=== PATIENT | male | born 1950 | race Caucasian/White ===

== ENCOUNTER 2018-03-26 15:46 | Observation (INO) ==
--- NOTE | 2018-03-26 16:20 | Emergency Department Note ---
ED Disposition Clinical Impression: COPD exacerbation Disposition: Still a Patient Condition on Discharge: Fair - Critical Care Critical Care Time: No Attestation: On 03/26/18, the high probability of a clinically significant, sudden or life threatening deterioration of the following system(s) required my full and direct attention, intervention and personal management. The time I documented below is in addition to time spent performing reported procedures but includes the following listed in this critical care notation. Medical Decision Making - Eliecer Inquiry Pt receiving controlled substance: No Vital Signs: 03/26/18 15:55 03/26/18 16:19 Temperature 98.8 F Temperature Source Temporal Artery Scan Pulse Rate 93 H Pulse Rate [Right Brachial] 97 H Respiratory Rate 32 H Blood Pressure [RIGHT] 121/63 Blood Pressure Mean [RIGHT] 82 Blood Pressure Source [RIGHT] Automatic Cuff Blood Pressure Position [RIGHT] Sitting 02 Sat by Pulse Oximetry 96 Oxygen Delivery Method Nasal Cannula Oxygen Flow Rate (LPM) 3 - Lab Data Lab Results 03/26/18 16:00: WBC 8.9, RBC 3.74 L, Hgb 12.4 L, Hct 35.1 L, MCV 93.7, MCH 33.0 H, MCHC 35.3, RDW 14.4, Plt Count 268, MPV 7.5, Neut % (Auto) 72.3, Lymph % (Auto) 16.4, [place] % (Auto) 6.6, Eos % (Auto) 4.3, Baso % (Auto) 0.3, Neut # (Auto) 6.4, Lymph # (Auto) 1.5, [place] # (Auto) 0.6, Eos # (Auto) 0.4, Baso # (Au to) 0.0 03/26/18 16:00: Sodium 140, Potassium 4.1, Chloride 102, Carbon Dioxide 32, Anion Gap 10.1, BUN 12, Creatinine 0.78, Estimated Creat Clear 42, Estimated GFR 100, Est GFR ( Amer) 120, Glucose 89, Calcium 9.5, Total Bilirubin 0.4, AST 24, ALT 23, Alkaline Phosphatase 120 H, Total Creatine Kinase 71, CK-MB (CK- 2) 2.3, CK-MB (CK-2) Rel Index 3.2, Troponin I < 0.02, Total Protein 8.0, Albumin 3.4, Globulin 4.6 H, Albumin/Globulin Ratio 0.7 L 10/09/18 16:00: Lactate 1.2 03/26/18 16:00: B-Natriuretic Peptide 20 Result diagrams: 03/26/18 16:00 03/26/18 16:00 Orders (Tests/Meds): ED MEDICATIONS Generic Name Dose Route Start Last Admin Trade Name Freq PRN Reason Stop Dose Admin Albuterol/Ipratropium 3 ml 03/26/18 20:00 Duoneb 3ml [facility] 04/25/18 19:59 QIDRT ARABELLA Methylprednisolone Sodium Succinate 80 mg 03/26/18 18:06 Solu-Medrol 125mg/2ml Vial IV 04/25/18 18:05 Q8H ARABELLA Discontinued Medications Generic Name Dose Route Start Last Admin Trade Name Freq PRN Reason Stop Dose Admin Albuterol/Ipratropium 3 ml 03/26/18 16:18 03/26/18 16:18 Duoneb 3ml [facility] 03/26/18 16:19 3 ml ONCE ONE Administration Methylprednisolone Sodium Succinate 125 mg 03/26/18 16:29 03/26/18 17:33 Solu-Medrol 125mg/2ml Vial IV 03/26/18 16:30 125 mg ONCE ONE Administration ORDERS Category Date Time Status CT chest wo con Stat Cat Scan 03/26/18 16:33 Taken Blood Culture Stat Micro 03/26/18 16:00 Received - Radiology Data #1 Image(s): Chest Image Reviewed: Yes I discussed the image results w/the radiologist COPD. Nodule at right costophrenic angle. Right midlung pleural-based density, appears old. - CT Data CT Scan: Chest Time Received: 17:[address] Reviewed: Yes: I have viewed the radiologist's interpretation Findings Narrative: CT scan interpreted by [facility] radiologist. Faxed report received and reviewed: Emphysema with evidence of old granulomatous disease. In comparison to 2016 there is new pleural parenchymal scarring or part solid mass versus pneumonia and/or subsegmental atelectasis peripherally along the major fissure at the base of the right upper lobe. - Physician Consults Physician Consulted: Blanca Time: 17:35 Reason -: Admission Comment/Response: Agrees to admit the patient to the hospital. We discussed the patient's clinical information, including history, exam, laboratory and radiology results and ED course. Per hospital procedure, I will write temporary bridge inpatient orders on the patient. Specific orders requested by the admi tting physician: Nebulizer treatments, IV steroids Medical Decision Narrative: 4:20 PM: Patient has refused arterial blood gas. 5:30 PM: Discussed disposition with patient and family. They do not feel he is well enough to go home. They report that the patient has been having episodes of pulse ox down into the 70s heart rate up to 130s at night, always complains of feeling cold. General Adult HPI - General Chief complaint: Shortness of Breath/Dyspnea Stated complaint: Low O2 Level Time Seen by Provider: 03/26/18 16:20 Mode of Arrival: Wheelchair Limitations: No Limitations Description of Symptoms (Recalled from ER Triage Doc. by RN): PT PRESENTS WITH SOA. SMOKER WHO HAS COPD AND WENT TO SEE HIS PCP , WHERE HE WAS ALSO HAVING DIFFICULTY AND THEY COULDN'T GET HIS O2 SATURATION ABOVE 65% - History of Present Illness HPI narrative: Poor historian. Sent from primary care provider's office by Calvin Lopez NP for Dr. Rios. Patient says he was there for an appointment that his girlfriend made for him. He is not sure why he had the appointment, whether it was a routine visit or because of some sort of recent illness. He had low pulse oximetry in the office - 65%. He has severe COPD, on oxygen 3 L nasal cannula at home. He is on nebulizer treatments and says he uses 15-20 a day, but they do not help. He says his chest always feels tight. He has a chronic burning sensation in his chest. He has a chronic cough. Recent decrease in sputum production, says he does not think that the nebulizer treatments help him cough up stuff is much as they used to. He felt feverish yesterday, did not take his temperature. Also had chills. Still smokes "from time to time". - Related Data Home Medications Medication Instructions Recorded Confirmed albuterol sulfate 2.5 mg/3 mL 1 dose INHALATION Q4H 30 Days #270 03/26/18 03/26/18 (0.083 %) solution for nebulization ml aspirin 81 mg tablet,delayed 81 mg PO DAILY 03/26/18 03/26/18 release atorvastatin 80 mg tablet 80 mg PO DAILY 30 Days #30 tab 03/26/18 03/26/18 omeprazole 40 mg capsule,delayed 1 tab PO DAILY 30 Days #30 cap 03/26/18 03/26/18 release Allergies Allergy/AdvReac Type Severity Reaction Status Date / Time ibuprofen [IBUPROFEN] Allergy Unknown I-RASH Verified 03/26/18 15:14 [facility] History I have reviewed the patient's past medical history: Yes Medical History: Reports:: Anxiety, Congestive Heart Failure, Chronic Obstructive Pulmonary Disease (COPD), Depression, Gastroesophageal Reflux Disease(GERD) Denies:: Cancer, Diabetes Mellitus Type 1, Diabetes Mellitus Type 2, Internal Pacemaker, Pulmonary Embolism, Renal Disease, Renal Insufficiency, Seizures Other Medical History: Reports: Arthritis Laterality Cases: Bilateral: Myringotomy (Ear Tubes) Other Surgeries: Yes: CABG, Cardiac Catheterization, Coronary Stent, Hernia Repair. No: Pacemaker Amputation: No Fractures: No - Social History Educational Level: Completed High School Smoking Status: Current every day smoker Tobacco Type: cigarettes # Packs/Day (cigarettes): 1 #Yrs smoked (if former smoker): 50 Alcohol Intake: former Alcohol Intake Frequency:: holidays/special occasions only - Psychiatric History Expresses thoughts of harming self/others: None Suicide Plan Description: No Plan Pschychiatric History:: Reports:: Anxiety, Depression Family Hx:: Cancer, Heart Attack, Stroke, Hypertension, Hyperlipidemia ROS Obtained: Yes All systems reviewed & no additional complaints - Constitutional Constitutional: Reports chills - Cardiovascular Cardiovascular: Reports chest pain (Chronic with cough) - Respiratory Respiratory: Yes cough, Yes dyspnea, No coughing up blood Physical Exam - General General appearance: alert, cachectic - Head Head exam: atraumatic, normocephalic, normal inspection - Eye Eye exam: Present: normal appearance, PERRL, EOMI - ENT ENT exam: Present: mucous membranes moist - Neck Neck exam: Present: normal inspection, full ROM, trachea midline. Absent: meningismus, lymphadenopathy - Chest Chest inspection: Present: normal inspection, symmetric chest wall rise. Absent: tenderness - Respiratory Respiratory exam: Present: other (Decreased breath sounds). Absent: respiratory distress - Cardiovascular Cardiovascular exam: Present: regular rate, normal rhythm. Absent: JVD - Abdominal Exam Abdominal exam: Present: soft, normal bowel sounds. Absent: distention, tenderness, guarding - Extremities Exam Extremities exam: Present: normal inspection, full ROM, normal capillary refill. Absent: calf tenderness - Neurological Exam Neurological exam: Present: alert, oriented X3 - Psychiatric Psychiatric exam: Present: normal affect, normal mood - Skin Skin exam: Present: warm, dry, intact, normal color
[2018-03-26 16:28] LABS: Basophils % 0.3 % (0.1-2.0); Eosinophils # 0.4 K/mm3 (0.0-0.4); Eosinophils % 4.3 % (0.1-12.0); Hematocrit 35.1 % (42.0-52.0); Hemoglobin 12.4 g/dL (14.1-18.0); Lymphocytes # 1.5 K/mm3 (0.7-4.5); Lymphocytes % 16.4 K/mm3 (10-50); Mean Corpuscular HGB Conc 35.3 g/dL (31.8-35.4); Mean Corpuscular Volume 93.7 fl (80-94); Mean Platelet Volume 7.5 fl (7.4-10.4); Monocytes # 0.6 K/mm3 (0.1-1.0); Monocytes % 6.6 % (1.7-9.3); Neutrophils # 6.4 K/mm3 (1.8-7.8); Neutrophils % 72.3 % (37.0-80.0); Platelet Count 268 K/mm3 (142-424); Red Blood Count 3.74 M/mm3 (4.60-6.20); Red Cell Distribution Width 14.4 % (11.5-17.5); White Blood Count 8.9 K/mm3 (4.8-10.8)
[2018-03-26 16:56] LABS: Alanine Aminotransferase 23 U/L (12-78); Albumin Level 3.4 gm/dL (3.4-5.0); Albumin/Globulin Ratio 0.7 (1.1-1.8); Alkaline Phosphatase 120 U/L (46-116); Anion Gap 10.1 mEq/L (5-15); Aspartate Amino Transferase 24 U/L (15-37); Bilirubin,Total 0.4 mg/dL (0.2-1.0); Blood Urea Nitrogen 12 mg/dL (7-18); Calcium 9.5 mg/dL (8.5-10.1); Carbon Dioxide 32 mmol/L (21.0-32.0); Chloride 102 mmol/L (98-107); Creatine Kinase 71 U/L (39-308); Globulin 4.6 gm/dl (1.3-3.2); Glucose 89 mg/dL (74-106); Potassium 4.1 mmoL/L (3.5-5.1); Sodium 140 mmol/L (136-145)
--- NOTE | 2018-03-26 20:23 | History & Physical Report ---
*Admission Date: 03/26/18 *Chief complaint: sob *History of present illness: this wm was seen in pcp office and refferred to ed as sat low and sig sob - [facility] History I have reviewed the patient's past medical history: Yes Medical History: Reports:: Anxiety, Congestive Heart Failure, Chronic Obstructive Pulmonary Disease (COPD), Depression, Gastroesophageal Reflux Disease(GERD), Hyperlipidemia, Hypertension Denies:: Cancer, Diabetes Mellitus Type 1, Diabetes Mellitus Type 2, Internal Pacemaker, MRSA, Pulmonary Embolism, Renal Disease, Renal Insufficiency, Seizures Other Medical History: Reports: Arthritis Laterality Cases: Bilateral: Myringotomy (Ear Tubes) Other Surgeries: Yes: CABG, Cardiac Catheterization, Coronary Stent, Hernia Repair. No: Pacemaker Amputation: No Fractures: No - *Social History Educational Level: Completed High School Smoking Status: Current every day smoker Tobacco Type: cigarettes # Packs/Day (cigarettes): 1 #Yrs smoked (if former smoker): 50 Alcohol Intake: former Alcohol Intake Frequency:: holidays/special occasions only Occupational Status: disabled Housing: house - Psychiatric History Expresses thoughts of harming self/others: None Suicide Plan Description: No Plan Pschychiatric History:: Reports:: Anxiety, Depression *Family Hx:: Cancer, Heart Attack, Stroke, Hypertension, Hyperlipidemia Review of Systems - Review of Systems Review of systems:: pertinent systems reviewed and negative unless documented below - Constitutional Reports fatigue, Denies fever(s) - Eyes Denies change in vision - ENT Reports dry mouth - *Cardiovascular Reports shortness of breath with activity, Denies chest pain at rest - *Respiratory Reports cough, Reports shortness of breath - *Gastrointestinal Denies abdominal pain - *Genitourinary Denies blood in urine - *Musculoskeletal Reports joint pain - Integumentary/Breasts Denies rash - *Neurologic Denies seizure-like activity - Psychiatric Reports anxiety Meds Home Medications Medication Instructions Recorded Confirmed Type albuterol sulfate 2.5 mg/3 mL 3 ml INHALATION Q4H 30 Days #270 ml 03/26/18 03/27/18 History (0.083 %) solution for nebulization atorvastatin 80 mg tablet 80 mg PO DAILY 30 Days #30 tab 03/26/18 03/26/18 History omeprazole 40 mg capsule,delayed 40 mg PO DAILY 30 Days #30 cap 03/26/18 03/27/18 History release Aspirin [Aspirin 325mg Tab] 325 mg PO DAILY 03/27/18 03/27/18 History Allergies Allergy/AdvReac Type Severity Reaction Status Date / Time ibuprofen [IBUPROFEN] Allergy Unknown I-RASH Verified 03/26/18 15:14 Exam Vital signs and Labs for Last 24 Hours: Temp Pulse Resp BP Pulse Ox 98.1 F 98 H 20 104/67 L 98 03/26/18 19:39 03/26/18 19:39 03/26/18 19:39 03/26/18 19:39 03/26/18 19:39 Laboratory Results - last 24 hr 03/26/18 16:00: WBC 8.9, RBC 3.74 L, Hgb 12.4 L, Hct 35.1 L, MCV 93.7, MCH 33.0 H, MCHC 35.3, RDW 14.4, Plt Count 268, MPV 7.5, Neut % (Auto) 72.3, Lymph % (Auto) 16.4, [place] % (Auto) 6.6, Eos % (Auto) 4.3, Baso % (Auto) 0.3, Neut # (Auto) 6.4, Lymph # (Auto) 1.5, [place] # (Auto) 0.6, Eos # (Auto) 0.4, Baso # (Auto) 0.0 03/26/18 16:00: Sodium 140, Potassium 4.1, Chloride 102, Carbon Dioxide 32, Anion Gap 10.1, BUN 12, Creatinine 0.78, Estimated Creat Clear 42, Estimated GFR 100, Est GFR ( Amer) 120, Glucose 89, Calcium 9.5, Total Bilirubin 0.4, AST 24, ALT 23, Alkaline Phosphatase 120 H, Total Creatine Kinase 71, CK-MB (CK- 2) 2.3, CK-MB (CK-2) Rel Index 3.2, Troponin I < 0.02, Total Protein 8.0, Albumin 3.4, Globulin 4.6 H, Albumin/Globulin Ratio 0.7 L 03/26/18 16:00: Lactate 1.2 03/26/18 16:00: B-Natriuretic Peptide 20 I & O for Last 24 hours: Intake & Output 03/24/18 03/25/18 03/26/18 03/27/18 11:59 11:59 11:59 11:59 Weight 95 lb - Constitutional no acute distress, cachectic - *Routine HEENT Exam Head: Present: normocephalic Eye: Present: EOMI, PERRL ENT: Present: mucous membranes dry - *Routine Neck Exam Absent: JVD - *Routine Respiratory Exam Present: prolonged expiratory phase, distant breath sounds - *Routine Cardiovascular Exam Present: RRR, murmur, S4 - *Routine Abdominal Exam Present: soft - *Routine Extremities Exam Absent: calf tenderness - *Routine Skin Exam Present: intact - *Routine Neurological Exam Present: alert, CN II-XII intact - Routine Psychiatric Exam Present: anxious Assessment and Plan (1) COPD exacerbation Current visit: Yes Status: Acute Category: Medical Code(s): J44.1 - Chronic obstructive pulmonary disease with (acute) exacerbation (2) Low body mass index (BMI) Current visit: Yes Status: Acute Category: Medical
--- NOTE | 2018-03-27 08:29 | Pharmacy Consult Notes ---
[facility] VTE Monitoring - Patient Demographics Admission date: 03/26/18 Report Date: 03/27/18 Time: 08:29 Allergies/Adverse Reactions: Patient Allergies ibuprofen [IBUPROFEN] Allergy (Unknown, Verified 03/26/18 15:14) I-RASH Height: 1.6 m Weight: 43.091 kg Patient Problems: Current Active Problems COPD exacerbation (Acute) - VTE Risk Labs: VTE Related Lab Results Hgb 12.4 g/dL (14.1-18.0) L 03/26/18 16:00 Hct 35.1 % (42.0-52.0) L 03/26/18 16:00 Plt Count 268 K/mm3 (142-424) 03/26/18 16:00 BUN 12 mg/dL (7-18) 03/26/18 16:00 Creatinine 0.78 mg/dL (0.70-1.30) 03/26/18 16:00 Estimated Creat Clear 42 mL/min (0-300) 03/26/18 16:00 VTE Score: 3 VTE Risk Level: Very Low Risk - Prophylaxis VTE Prophylaxis Ordered?: Yes Types of VTE Prophylaxis: TEDS Knee High Location of Applied Device: Bilateral Lower Extremeties - VTE Diagnosis Confirmed Treatment or plan recommended: Continue Current Treatment
--- NOTE | 2018-03-28 10:24 | Discharge Summary ---
General - General Admission date:: 03/26/18 Discharge date: 03/28/18 HPI HPI: this wm was seen in pcp office and sent to ed as sat low and sig sob -pt was admitted -nt from primary care provider's office by Calvin Lopez NP for Dr. Rios. Patient says he was there for an appointment that his girlfriend made for him. He is not sure why he had the appointment, whether it was a routine visit or because of some sort of recent illness. He had low pulse oximetry in the office - 65%. He has severe COPD, on oxygen 3 L nasal cannula at home. He is on nebulizer treatments and says he uses 15-20 a day, but they do not help. He says his chest always feels tight. He has a chronic burning sensation in his chest. He has a chronic cough. Recent decrease in sputum production, says he does not think that the nebulizer treatments help him cough up stuff is much as they used to. He felt feverish yesterday, did not take his temperature. Also had chills- Hospital Course Hospital Course: pt did well with iv steroids and had abx with pul treatment with adding breo - pt was at baseline act and has home o2 - cxr showed copd and ct was abn-NGS: Small bowel gas is present in the sternoclavicular joints nonspecific. There has been a prior median sternotomy with CABG. Multiple calcified nodes are present within the mediastinum and haven. There are coronary artery calcifications. Normal heart size. No evidence of pericardial effusion. There is dilatation of the trachea radiating up to 2.4 cm transverse and 2 cm AP consistent with tracheobronchomegaly Severe centrilobular emphysema with scattered areas of parenchymal fibrosis. Parenchymal opacification is present involving the posterior aspect of the right upper lobe along the major fissure partly solid measuring 1.3 x 1 cm with some surrounding groundglass density. Calcified nodule is present along the major fissure inferiorly on the right. There is some pleural thickening in the right CP angle anteriorly which may account for the radiographic abnormality. Calcified granulomas present in the lingula. Noncalcified nodule present in the left lower lobe laterally at 4 mm. There is mild diffuse bronchial thickening. No central obstructing lesions are evident. No acute bony anomalies evident. There is an old fracture of the left fifth rib posterior laterally. No acute finding in the upper abdomen images. Nonobstructing 2 mm stone is present in the upper pole the left kidney. IMPRESSION: 1. New opacity in the posterior aspect of the right upper lobe with a solid component at 1.3 x 1 cm with some peripheral groundglass opacity. This could represent pleural parenchymal scarring versus underlying pneumonia with dense opacification for neoplasm. 3 month follow-up without and with contrast suggested. Alternatively, PET CT may be of further value clinically warranted. 2. Centrilobular emphysema with scattered areas of pulmonary fibrosis with tracheobronchomeg pt will be seen at op next week and pul consult Objective Vital signs: Temp Pulse Resp BP Pulse Ox 97.8 F 72 20 93/56 L 99 03/28/18 07:58 03/28/18 07:58 03/28/18 07:58 03/28/18 07:58 03/28/18 07:58 no acute distress, cachectic - *Routine HEENT Exam Head: Present: normocephalic Eye: Present: EOMI, PERRL ENT: Present: mucous membranes dry - *Routine Neck Exam Absent: JVD - *Routine Respiratory Exam Present: prolonged expiratory phase, rhonchi, wheezes - *Routine Cardiovascular Exam Present: RRR, murmur, S4 - *Routine Abdominal Exam Present: soft - *Routine Extremities Exam Present: full ROM. Absent: edema - *Routine Skin Exam Present: intact - *Routine Neurological Exam Present: alert, oriented X3, CN II-XII intact - Routine Psychiatric Exam Present: normal affect DS: Diagnosis - Discharge Diagnosis (1) COPD exacerbation Status: Acute (2) Low body mass index (BMI) Status: Acute (3) Pulmonary nodule, right Status: Acute (4) Tobacco use Status: Acute Discharge Plan - Patient Discharge Instructions ACTIVITY: Continue current activity DIET: continue same diet - Follow up Plan Disposition: Home, Self-Nursing Home Medications: Home Medications Medication Instructions Recorded Confirmed Type albuterol sulfate 2.5 mg/3 mL 3 ml INHALATION Q4H 30 Days #270 ml 03/26/18 03/27/18 History (0.083 %) solution for nebulization atorvastatin 80 mg tablet 80 mg PO DAILY 30 Days #30 tab 03/26/18 03/26/18 History omeprazole 40 mg capsule,delayed 40 mg PO DAILY 30 Days #30 cap 03/26/18 03/27/18 History release Aspirin [Aspirin 325mg Tab] 325 mg PO DAILY 03/27/18 03/27/18 History Prescriptions/Medication Reconciliation: New Aspirin [Aspirin 325mg Tab] 325 mg PO HS tablet Atorvastatin Calcium [Lipitor 40mg Tablet] 80 mg PO HS tablet predniSONE [Prednisone 20mg Tab] 20 mg PO BID #10 tab levoFLOXacin [Levaquin 500mg tab] 500 mg PO DAILY #7 tab Continue omeprazole 40 mg capsule,delayed release 40 mg PO DAILY 30 Days #30 cap atorvastatin 80 mg tablet 80 mg PO DAILY 30 Days #30 tab albuterol sulfate 2.5 mg/3 mL (0.083 %) solution for nebulization 3 ml INHALATION Q4H 30 Days #270 ml Aspirin [Aspirin 325mg Tab] 325 mg PO DAILY
== END 2018-03-28 12:16 | disposition home or self-care (01) ==
LOC: ER 15:46 → 2ND 15:46
PROVIDERS: ADMIT Emergency Medicine; ATTEND Emergency Medicine
CPT/HCPCS: 71010; 71045; 71250; 80053; 82550; 82553; 83605; 83880; 84484; 85025; 87040; 94640; 94761; 99283; G0378